=== PATIENT | male | born 1995 | race Two or more races ===

== ENCOUNTER 2017-10-05 22:59 | Emergency (ER) | payer SELFPAY ==
[2017-10-05] MEDS: Sodium Chloride 0.9% 1,000 ML IV ONE (23:44)
--- NOTE | 2017-10-05 23:45 | EDM.PDOC ---
ED HPI GENERAL MEDICAL PROBLEM - General Chief Complaint: General Stated Complaint: OUT OF MEDICATION [id number] Time Seen by Provider: 10/05/17 23:43 Source of Information: Reports: Patient History Limitations: Reports: No Limitations - History of Present Illness INITIAL COMMENTS - FREE TEXT/NARRATIVE: explained to pt re; laws governing med refill in the ER. pt understood. - Related Data Allergies Allergy/AdvReac Type Severity Reaction Status Date / Time No Known Allergies Allergy Verified 10/05/17 23:15 Home Meds: Home Meds Escitalopram [Lexapro] 10 mg PO DAILY 10/05/17 [History] risperiDONE 2 mg PO DAILY 10/05/17 [History] Past Medical History Psychiatric History: Reports: Anxiety, Depression Social & Family History - Family History Family Medical History: Noncontributory - Tobacco Use Smoking Status *Q: Current Every Day Smoker Years of Tobacco use: 5 Packs/Tins Daily: 1 - Recreational Drug Use Recreational Drug Use: No ED ROS GENERAL - Review of Systems Review Of Systems: ROS reveals no pertinent complaints other than HPI. ED EXAM, GENERAL - Physical Exam Exam: See Below Exam Limited By: No Limitations General Appearance: Alert, WD/WN, Anxious Ears: Hearing Grossly Normal Throat/Mouth: Normal Voice, No Airway Compromise Head: Atraumatic Respiratory/Chest: No Respiratory Distress Neurological: Alert, Oriented, Normal Cognition, Normal Gait, No Motor/Sensory Deficits Psychiatric: Anxious Skin Exam: Warm, Dry, Normal Color Lymphatic: No Adenopathy Course - Vital Signs Last Recorded V/S: Last Vital Signs Temp 37.9 C 10/05/17 23:18 Pulse 96 10/05/17 23:18 Resp 18 10/05/17 23:18 BP 136/70 10/05/17 23:18 Pulse Ox 98 10/05/17 23:18 - Orders/Labs/Meds Orders: Active Orders 24 hr Category Date Time Status LORazepam [Ativan] Med 10/05/17 23:42 Once 1 mg PO ONETIME ONE Sodium Chloride 0.9% [Normal Saline] 1,000 ml Med 10/05/17 23:36 Stop Req IV .BOLUS Medication Orders Sodium Chloride (Normal Saline) 1,000 mls @ 999 mls/hr IV .BOLUS ONE Stop: 10/06/17 00:36 Lorazepam (Ativan) 1 mg PO ONETIME ONE Stop: 10/05/17 23:43 Meds: Medications Generic Name Dose Route Start Last Admin Trade Name Lis PRN Reason Stop Dose Admin Sodium Chloride 1,000 mls @ 999 mls/hr 10/05/17 23:36 Normal Saline IV 10/06/17 00:36 .BOLUS ONE Lorazepam 1 mg 10/05/17 23:42 Ativan PO 10/05/17 23:43 ONETIME ONE Departure - Departure Time of Disposition: 23:44 Disposition: Home, Self-Care 01 Condition: Good Clinical Impression: Has run out of medications, Anxiety - Discharge Information Additional Instructions: 1) see clinic tomorrow about med refill - My Orders Last 24 Hours: My Active Orders 10/05/17 23:36 Sodium Chloride 0.9% [Normal Saline] 1,000 ml IV .BOLUS 10/05/17 23:42 LORazepam [Ativan] 1 mg PO ONETIME ONE - Assessment/Plan Last 24 Hours: My Active Orders 10/05/17 23:36 Sodium Chloride 0.9% [Normal Saline] 1,000 ml IV .BOLUS 10/05/17 23:42 LORazepam [Ativan] 1 mg PO ONETIME ONE
[2017-10-05] MEDS: LORazepam 1 MG Tab PO ONE (23:48)
== END 2017-10-05 23:58 | disposition home or self-care (01) ==
LOC: DL.ED 22:59
DX: F41.9 Anxiety disorder, unspecified (principal); F32.9 Major depressive disorder, single episode, unspecified; F17.210 Nicotine dependence, cigarettes, uncomplicated; Z79.899 Other long term (current) drug therapy
CPT/HCPCS: 99282; A9270